=== PATIENT | female | born 1980 | race African-American/Black ===

== ENCOUNTER 2016-06-06 20:49 | Emergency (ER) | payer OTHER ==
[~2016-06-06] VITALS: Ht 157.5 cm; Wt 59.1 kg
[2016-06-06] MEDS ORDERED: IBUPROFEN 600 MG TABLET PO ONE (22:15)
[2016-06-06 23:07] VITALS: BP 138/82
== END 2016-06-06 23:09 | disposition home or self-care (01) ==
LOC: EMS 20:58
DX: S83.92XA Sprain of unspecified site of left knee, initial encounter (principal); F17.210 Nicotine dependence, cigarettes, uncomplicated; W18.09XA Striking against other object with subsequent fall, initial encounter; Y93.01 Activity, walking, marching and hiking; Y92.89 Other specified places as the place of occurrence of the external cause; Y99.8 Other external cause status
CPT/HCPCS: 29505; 29530; 99284

== ENCOUNTER 2016-08-13 20:11 | Emergency (ER) | payer OTHER ==
[~2016-08-13] VITALS: Ht 157.5 cm; Wt 61.4 kg
[2016-08-13 20:23] VITALS: BP 137/79
[2016-08-13] MEDS ORDERED: TRAM50TA4 PO (20:24)
== END 2016-08-13 21:13 | disposition left against medical advice (07) ==
LOC: EMS 20:16
DX: Z76.0 Encounter for issue of repeat prescription (principal); M25.531 Pain in right wrist; F17.210 Nicotine dependence, cigarettes, uncomplicated; Z53.21 Procedure and treatment not carried out due to patient leaving prior to being seen by health care provider

== ENCOUNTER 2016-08-14 11:03 | Emergency (ER) | payer MEDICAID, OTHER ==
[~2016-08-14] VITALS: Ht 157.5 cm; Wt 59.0 kg
[~2016-08-14 11:03] MED LIST: TRAM50TA4 PO
[2016-08-14] MEDS ORDERED: IBUPROFEN 800 MG TABLET PO ONE (11:45)
[2016-08-14 13:41] VITALS: BP 117/70
== END 2016-08-14 14:29 | disposition home or self-care (01) ==
LOC: EMS 11:05
DX: Z76.0 Encounter for issue of repeat prescription (principal); M79.641 Pain in right hand; G89.29 Other chronic pain; F17.210 Nicotine dependence, cigarettes, uncomplicated
CPT/HCPCS: 99284